=== PATIENT | female | born 1965 | race Caucasian/White ===

== ENCOUNTER 2017-12-24 16:35 | Emergency (ER) | payer OTHER ==
[~2017-12-24] VITALS: Ht 177.8 cm; Wt 140.0 kg
[~2017-12-24 16:35] MED LIST: ATOR40TA PO; BENI40TA30 PO; FURO20TA PO; GABA100C4 PO; METO50TA PO; PROZ20CA11 PO
[2017-12-24 16:46] VITALS: BP 165/94; PULSE 57; RESP 18; TEMP 98.7; O2SAT 96
--- NOTE | 2017-12-24 17:58 | RADRPT ---
EXAM DATE/TIME: 12/24/2017 17:22 [facility] COMPARISON: No previous studies available for comparison. INDICATIONS : Left elbow pain MEDICAL HISTORY : None. SURGICAL HISTORY : None. ENCOUNTER: Initial ACUITY: 1 day PAIN SCORE: 9/10 LOCATION: Left elbow FINDINGS: Multiple view examination of the left elbow demonstrates no soft tissue swelling, joint effusion, or fracture. Mild osteoarthritis. The osseous structures are in normal alignment. Bony mineralization is normal. CONCLUSION: Mild osteoarthritis. Victoriano Mancini Jr., MD on December 24, 2017 at 17:47 Board Certified Radiologist. This report was verified electronically.
--- NOTE | 2017-12-24 18:00 | RADRPT ---
EXAM DATE/TIME: 12/24/2017 17:25 [facility] COMPARISON: ELBOW LEFT COMPLETE (4 VWS), December 24, 2017, 17:22. INDICATIONS : Right ankle pain, post fall. MEDICAL HISTORY : None. SURGICAL HISTORY : None. ENCOUNTER: Initial ACUITY: 1 day PAIN SCORE: 9/10 LOCATION: Right ankle FINDINGS: 3 views of the right ankle show no fracture or dislocation. There is a lucency with thin sclerotic ri m involving the distal fibular metaphysis along its more medial aspect. No bony expansion or destruct ion. Spurring of the calcaneus noted. Soft tissues are otherwise unremarkable. No joint effusion. CONCLUSION: 1. No acute abnormality. 2. Benign lesion involving the distal fibula likely related to a bone cyst or fibrous cortical defect . Victoriano Mancini Jr., MD on December 24, 2017 at 17:56 Board Certified Radiologist. This report was verified electronically.
--- NOTE | 2017-12-24 20:40 | PD ---
HPI Chief Complaint: Fall Time Seen by Provider: 20:28 Travel History International Travel<30 days: No Contact w/Intl Traveler<30days: No Traveled to known affect area: No History of Present Illness HPI 52-year-old female presents for evaluation of her mechanical fall. She reports at 4 PM today she was in her driveway when she twists her right foot and fell, hitting her face and head against the car and then falling on the ground. No loss of consciousness. She is complaining of a headache, any confusion or amnesia, nausea or vomiting, blurred vision. She is not on any blood thinning medications. Her last tetanus vaccination is unknown. No other complaints. PFSH Past Medical History Cardiovascular Problems: Yes (HIGH BP) Diminished Hearing: No Hypertension: Yes Kidney Stones: Yes Thyroid Disease: Yes Tetanus Vaccination: > 5 Years Influenza Vaccination: No ?: Not Menopausal: No : 3 Para: 2 : 1 Tubal Ligation: Yes Past Surgical History Abdominal Surgery: Yes (HERNIA REPAIR WITH MESH IMPLANT) Appendectomy: Yes Cholecystectomy: Yes Hysterectomy: Yes Tonsillectomy: Yes Social History Alcohol Use: No Tobacco Use: No Substance Use: No Allergies-Medications (Allergen,Severity, Reaction): Coded Allergies: Iodinated Contrast- Oral and IV Dye (Verified Allergy, Severe, 12/24/17) shellfish derived (Unverified Allergy, Severe, HIVES, 12/24/17) morphine (Unverified Allergy, Mild, 12/24/17) bee venom protein (honey bee) (Unverified Allergy, Unknown, ?, 12/24/17) Reported Meds & Prescriptions Reported Meds & Active Scripts Active Reported Gabapentin 100 Mg Cap 100 Mg PO TID Metoprolol Tartrate 50 mg (Metoprolol Tartrate) 50 Mg Tab 50 Mg PO BID Furosemide 20 Mg Tab 20 Mg PO DAILY Benicar (Olmesartan) 40 Mg Tab 40 Mg PO DAILY Atorvastatin 40 mg (Atorvastatin Calcium) 40 Mg Tab 40 Mg PO HS Prozac (Fluoxetine HCl) 20 Mg Cap 40 Mg PO DAILY Review of Systems Except as stated in HPI: all other systems reviewed are Neg Physical Exam Narrative GENERAL: Well-developed well-nourished female no acute distress SKIN: Warm and dry. 2 cm laceration to the posterior left elbow. HEAD: Atraumatic. Normocephalic. EYES: Pupils equal and round. No scleral icterus. No injection or drainage. ENT: No nasal bleeding or discharge. Mucous membranes pink and moist. NECK: Trachea midline. No JVD. CARDIOVASCULAR: Regular rate and rhythm. No murmur appreciated. RESPIRATORY: No accessory muscle use. Clear to auscultation. Breath sounds equal bilaterally. GASTROINTESTINAL: Abdomen soft, non-tender, nondistended. Hepatic and splenic margins not palpable. MUSCULOSKELETAL: Skin as noted above. There is tenderness to palpation of left elbow, left wrist, mild lateral right ankle tenderness. There is some soft tissue swelling to left wrist. There is pain with range of motion activities of the left wrist and left ankle. NEUROLOGICAL: Awake and alert. No obvious cranial nerve deficits. Motor grossly within normal limits. Normal speech. Data Data Last Documented VS Vital Signs Date Time Temp Pulse Resp B/P (MAP) Pulse Ox O2 Delivery O2 Flow Rate FiO2 12/24/17 16:46 98.7 57 18 165/94 (117) 96 Orders Orders Elbow, Complete (4 Vws) (12/24/17 ) Ankle, Complete ([id number]) (12/24/17 ) Ct Brain W/O Iv Contrast(Rout) (12/24/17 ) Wrist, Complete ([id number]) (12/24/17 ) Tetanus/Diphtheria Tox Adult (Tetanus/Di (12/24/17 20:45) Acetaminophen (Tylenol) (12/24/17 20:45) MDM Medical Decision Making Medical Screen Exam Complete: Yes Emergency Medical Condition: Yes Medical Record Reviewed: Yes Differential Diagnosis Laceration, fracture, sprain, strain, contusion Narrative Course The laceration will be repaired with sutures, she verbally consents. Tetanus status updated. Imaging studies reveal no acute abnormalities. The patient is stable for discharge. Procedures Procedure Narrative LACERATION LOCATION: Left elbow LENGTH: 2 cm NUMBER OF STITCHES/KAMERON: 7 REPAIR: The area of the laceration was prepped with Betadine and sterilely draped. The laceration was infiltrated with 1% lidocaine. The wound was copiously irrigated and explored without evidence of foreign body, tendon injury or neurovascular injury. The wound was closed using 5-0 nylon simple interrupted. This was a single layer repair. A sterile dressing was applied. The patient was advised to keep the dressing clean and dry. Patient tolerated the procedure well. Diagnosis Primary Impression: Elbow laceration Additional Impressions: Wrist strain Closed head injury Right ankle strain Additional Instructions: Wash the wound daily with soap and water and apply antibiotic cream and clean bandages. Tylenol or Motrin for pain. Rest, avoid strenuous activity. Return in approximately 2 weeks for suture removal. Med/Other Pt SpecificInfo: Wound Care Disposition: 01 DISCHARGE HOME Condition: Stable Reynaldo Christian Dec 24, 2017 20:40
[2017-12-24] MEDS ORDERED: ACETAMINOPHEN 325 MG TAB PO ONE (20:45)
[2017-12-24] MEDS ORDERED: TETANUS/DIPHTHERIA TOXOID ADULT 0.5 ML VIAL IM ONE (20:45)
--- NOTE | 2017-12-24 21:31 | RADRPT ---
EXAM DATE/TIME: 12/24/2017 20:54 [facility] COMPARISON: No previous studies available for comparison. INDICATIONS : Left wrist pain post fall. MEDICAL HISTORY : None. SURGICAL HISTORY : None. ENCOUNTER: Initial ACUITY: 1 day PAIN SCORE: 8/10 LOCATION: Left wrist. FINDINGS: Three view examination of the left wrist demonstrates no soft tissue swelling, dislocation, or fractu re. The carpal bones are in normal alignment. The joint spaces are maintained. Bony mineralization is normal. CONCLUSION: 1. No acute findings. Steve Abdi MD on December 24, 2017 at 21:28 Board Certified Radiologist. This report was verified electronically.
--- NOTE | 2017-12-24 22:04 | RADRPT ---
EXAM DATE/TIME: 12/24/2017 21:35 [facility] COMPARISON: No previous studies available for comparison. INDICATIONS : Trauma, fell and hit head. RADIATION DOSE: 56.35 CTDIvol (mGy) MEDICAL HISTORY : Hypertension. Renal calculi. SURGICAL HISTORY : Appendectomy. Cholecystectomy.Hysterectomy. ENCOUNTER: Initial ACUITY: 1 day PAIN SCALE: 5/10 LOCATION: cranial TECHNIQUE: Multiple contiguous axial images were obtained of the head. Using automated exposure control and adj ustment of the mA and/or kV according to patient size, radiation dose was kept as low as reasonably a chievable to obtain optimal diagnostic quality images. DICOM format image data is available electro nically for review and comparison. FINDINGS: CEREBRUM: The ventricles are normal for age. No evidence of midline shift, mass lesion, hemorrhage or acute in farction. No extra-axial fluid collections are seen. POSTERIOR FOSSA: The cerebellum and brainstem are intact. The 4th ventricle is midline. The cerebellopontine angle i s unremarkable. EXTRACRANIAL: The visualized portion of the orbits is intact. SKULL: The calvaria is intact. No evidence of skull fracture. CONCLUSION: 1. No acute intracranial abnormalities. Retention cyst right maxillary sinus. Steve Abdi MD on December 24, 2017 at 22:01 Board Certified Radiologist. This report was verified electronically.
== END 2017-12-24 22:24 | disposition home or self-care (01) ==
LOC: NEPD 16:35
DX: S51.012A Laceration without foreign body of left elbow, initial encounter (principal); S66.912A Strain of unspecified muscle, fascia and tendon at wrist and hand level, left hand, initial encounter; S09.90XA Unspecified injury of head, initial encounter; S93.401A Sprain of unspecified ligament of right ankle, initial encounter; I10 Essential (primary) hypertension; E07.9 Disorder of thyroid, unspecified; W18.30XA Fall on same level, unspecified, initial encounter; Z23 Encounter for immunization; Z87.442 Personal history of urinary calculi
CPT/HCPCS: 12001; 70450; 73080; 73110; 73610; 90471; 90714